=== PATIENT | female | born 1990 | race Caucasian/White ===

== ENCOUNTER 2017-01-01 18:03 | Emergency (ER) | payer SELFPAY ==
[~2017-01-01] VITALS: Ht 160 cm; Wt 81.3 kg
[~2017-01-01 18:03] MED LIST: ESCI20TA PO; HYDR-4246 PO
[2017-01-01 18:04] VITALS: Ht 160 cm; Wt 81.3 kg
--- OUTSIDE RECORDS SUMMARY | 2017-01-01 18:07 | XMS REPORT | Referral Summary ---
Author Author [facility] Organization [facility] Address Unknown Phone Unavailable Care Team Providers Care Mobile Home Installer Name Role Phone Dolly Brennan Primary Care Physician [phone] Encounter VC Date(s): 07/12/16 - 07/12/16 [facility] [address] [place] [address] JORJE Mahajan [id number] Discharge Diagnosis: RLQ abdominal pain Discharge Disposition: 01-Home or Self Care Attending Physician: Jose Olea MD Admitting Physician: Jose Olea MD Vital Signs Most recent to 1 oldest [Reference Range]: Temperature Tympanic 37.4 degC [36.6-38.1 degC] (07/12/16 3:13 PM) Peripheral Pulse 88 bpm Rate [60-100 bpm] (07/12/16 3:13 PM) Blood Pressure 128/72 mmHg [90-140/60-90 mmHg] (07/12/16 3:13 PM) SpO2 98 % (07/12/16 3:13 PM) Problem List Condition Effective Dates Status Health Status Informant Anemia(Confirmed) Active Anxiety(Confirmed) Active HTN Active (hypertension)(Confi rmed) Nephrolithiasis(Conf Active irmed) Obesity(Confirmed) Active patient Allergies, Adverse Reactions, Alerts Substance Reaction Severity Status sulfa drugs Active Medications ferrous sulfate 325 mg (65 mg elemental iron) oral tablet 325 mg 1 tabs, Oral, BID, 0 Refill(s) Start Date: 07/12/16 Status: Ordered Lexapro 20 mg oral tablet 20 mg 1 tabs, Oral, Daily, 0 Refill(s) Start Date: 07/12/16 Status: Ordered Ortho Tri-Cyclen oral tablet 1 tabs, Oral, Daily Start Date: 07/10/16 Status: Ordered Vitamin B12 50 mcg, Oral, Daily, TAKES 2 QD, 0 Refill(s) Start Date: 07/12/16 Status: Ordered Results No data available for this section Immunizations No data available for this section Procedures Procedure Date Related Diagnosis Body Site Caesarean section Tubal ligation Social History Social History Type Response Smoking Status Former smoker; Type: Cigarettes; Date Last Use: PT. QUIT . Assessment and Plan Extracted from: Title: Office Visit Note Author: Jose Olea MD Date: 07/12/16 Assessment/Plan 1.RLQ abdominal pain Ordered: Office Visit Level 4 New [address]3077 Plan: Soft tissue sonogram. Await results andproceed accordingly I did review the patient's chart including office note performed by her PCPs garryfrLeola 2015. I informed the patientthat I have had two patient's over last 17 yearsof my surgical careerpresent with asoft tissue endometriomaalong theirprior C-sectionincision. In both of these cases the endometrioma was hormonally responsiveand changed with the "menstrual cycle". Given her history and physical findings I informed the patient thata soft tissue endometrioma would be within the"list of possibilities"/differential diagnosis. To furtherdelineate whether or not there is indeed an obvious soft tissue mass I informed the patient that I would like to obtain asoft tissue sonogram. If a well delineated soft tissue mass isnoted upon sonography Iwould recommend toproceed with anexcisional biopsy. If no abnormalitiesare noted uponsonogramwilllikely than proceed with CT scan of pelvisfor further evaluation/rule out possible incisional hernia. The above proposed plan/algorithm was discussed with patient and . They understood and agreed.
--- OUTSIDE RECORDS SUMMARY | 2017-01-01 18:07 | XMS REPORT | Continuity of care Document ---
Author Author GENERATED, SYSTEM Organization Unknown Address Unknown Phone Unavailable Purpose Hospital Course Allergies, Adverse Reactions, Alerts * Sulfa (Sulfonamide Antibiotics) causes Hives. * No Latex Allergy. * No IV Contrast Allergy. Problems * Section Status:Active. * History of Section Status:Active. Procedures No relevant procedures performed. Medication It is the responsibility of the patient or patient architectural representative to confirm the list of medications with either the patient's personal care provider or the patient's follow-up care provider to ensure the patient has an appropriate list of medications to take at home. Take These Medications* IBUPROFEN (MOTRIN) 800 MG=1 TABLET By Mouth TIDP PRN PAIN Directions: oral three times a day PRN PAIN * oxyCODONE-acetaminophen 5 mg-325 mg Tablet, Ordered By: GLORIA MCDANIEL RN Directions: 1 or 2 tablets oral every four hours PRN PAIN Additional Instructions: . Stop Taking These Medications* None Results Blood Gas from 02/13/2014 7:[address] PH 7.350 (7.130-7.430 ) ART. CORD BL. PCO2 38.0 MM HG (30.0-60.0 MM HG) *ART. CORD BL. PO2 34 MM HG H (5-25 MM HG) ART. CORD BL. BE -4.2 L (-2.5-11.0 ) GURWINDER. CORD BL. PH 7.300 (7.190-7.490 ) GURWINDER. CORD BL. PCO2 50.0 MM HG (30.0-60.0 MM HG) GURWINDER. CORD BL. PO2 <30 MM HG (15-45 MM HG) GURWINDER. CORD BL. BE -2.4 (-2.5-9.0 ) Hematology from 02/13/2014 5:56 AMWBC 9.5 X10e3/UL (3.6-11.2 X10e3/UL) RBC 3.86 X10e6/UL (3.63-4.92 X10e6/UL) HEMOGLOBIN 11.2 G/DL (11.0-14.3 G/DL) HEMATOCRIT 32.9 % (31.2-41.9 %) MCV 85.2 FL (79.0-98.0 FL) MCH 29.0 PG (27.0-33.0 PG) MCHC 34.0 G/DL (32.0-36.0 G/DL) RDW 18.1 % H (12.3-17.0 %) RDWSD 53.8 H (37.1-47.8 ) PLATELET 191 X10e3/UL (159-386 X10e3/UL) MPV 9.5 FL (7.4-10.4 FL) AUTOMATED DIFF PERFORMED SEGS 72.6 % LYMPHOCYTES 14.9 % MONOCYTES 11.8 % EOSINOPHILS 0.3 % BASOPHILS 0.4 % ABSOLUTE NEUTROPHILS 6.9 X10e3/UL (1.8-7.8 X10e3/UL) ABSOLUTE LYMPHOCYTES 1.4 X10e3/UL (1.0-3.0 X10e3/UL) ABSOLUTE MONOCYTES 1.1 X10e3/UL H (0.3-1.0 X10e3/UL) ABSOLUTE EOSINOPHILS 0.0 X10e3/UL (0.0-0.5 X10e3/UL) ABSOLUTE BASOPHILS 0.0 X10e3/UL (0.0-0.2 X10e3/UL) Hematology from 02/14/2014 5:18 AMWBC 9.7 X10e3/UL (3.6-11.2 X10e3/UL) RBC 3.32 X10e6/UL L (3.63-4.92 X10e6/UL) HEMOGLOBIN 9.6 G/DL L (11.0-14.3 G/DL) HEMATOCRIT 28.5 % L (31.2-41.9 %) MCV 85.7 FL (79.0-98.0 FL) MCH 28.9 PG (27.0-33.0 PG) MCHC 33.7 G/DL (32.0-36.0 G/DL) RDW 17.8 % H (12.3-17.0 %) RDWSD 52.9 H (37.1-47.8 ) PLATELET 165 X10e3/UL (159-386 X10e3/UL) MPV 9.1 FL (7.4-10.4 FL) AUTOMATED DIFF PERFORMED SEGS 78.0 % LYMPHOCYTES 11.4 % MONOCYTES 9.5 % EOSINOPHILS 0.9 % BASOPHILS 0.2 % ABSOLUTE NEUTROPHILS 7.6 X10e3/UL (1.8-7.8 X10e3/UL) ABSOLUTE LYMPHOCYTES 1.1 X10e3/UL (1.0-3.0 X10e3/UL) ABSOLUTE MONOCYTES 0.9 X10e3/UL (0.3-1.0 X10e3/UL) ABSOLUTE EOSINOPHILS 0.1 X10e3/UL (0.0-0.5 X10e3/UL) ABSOLUTE BASOPHILS 0.0 X10e3/UL (0.0-0.2 X10e3/UL) Blood Bank from 02/13/2014 5:56 AMANTIBODY SCREEN (Indirect Young) NEG ABO GROUP O RH TYPE POS
--- OUTSIDE RECORDS SUMMARY | 2017-01-01 18:07 | XMS REPORT | Continuity of Care Document ---
Author Author [facility] Organization [facility] Address Unknown Phone Unavailable Support Name Relationship Address Phone PARI REED FACS, MD Caregiver [address] [place] [address] [place] [address] Unavailable NIDIA SANCHEZ Caregiver [address] [place] [address] Unavailable TONYRICARDO Next Of Kin [address] [place] [address] Insurance Providers Guarantor Naya,Sonidopaola Address [address] [place] [address] Email DENIED PT PORTAL Payer Self Pay Subscriber's Name TonySherrell alvarez Relationship 18 Self Advance Directives Directive Response Recorded Date/Time Ordered Resuscitation Status Full Code 09/07/16 1:38pm Resuscitation Documents on File No 09/08/16 8:31am DPOA for Healthcare Only No 09/08/16 8:31am Living Will No 09/08/16 8:31am Problems No problem information available. Medications Current Home Medications Medication Dose Units Route Directions Days Qty Instructions Start Date Escitalopram Oxalate (Lexapro) 20 Mg Tablet 1 Tab Oral Bedtime Hydrocodone/Acetaminophen ([place] 5-325 Tablet) 5-325 Tablet 1-2 Tab Oral Every 5 Hours for Pain 10 Tablet 09/08/16 Social History Social History Problem Response Recorded Date/Time Onset Date Status Reason for Hospitalization EXCISION ON ABDOMEN 09/08/2016 10:52am Not Applicable Not Applicable Chewing Tobacco Status No 09/08/2016 8:27am Not Applicable Not Applicable Hx Substance Use No 09/08/2016 8:27am Not Applicable Not Applicable Hx Alcohol Use No 09/08/2016 8:27am Not Applicable Not Applicable Has the pt used tobacco in the last 12 months No 09/08/2016 8:27am Not Applicable Not Applicable Query Response Start Date Stop Date Smoking Status Former smoker Hospital Discharge Instructions Instructions: Care Instructions: I was in the hospital because (patient own words): EXCISION ON ABDOMEN Discharge Diet: regular Discharge Activity: Do not drive, operate machinery for 24 hours after surgery or while taking pain medication. Follow Up Appointments: Follow up with Kimberley Knight APRN/Dr. Reed in 10-14 days. Pending Lab / Results: Will be notified Expected Signs/Symptoms: bruising of the iincision area Notify Physician If: 1. Call your surgeon if you are having problems relating to your surgery at [phone]. 2. Problems such as: Temp above 101.5 degrees You develop redness, excessive swelling of the incision, increasing pain or excessive foul smelling drainage. 3. If the office is closed, call [facility] at [phone] and have your Surgeon paged. During Business Hours:: Call your surgeon at at [phone]. After Business Hours:: If the office is closed, call [facility] at [phone] and have your Surgeon paged. Pain Management/Treatment: Follow prescriptions as prescribed Wound/Incision Care: Leave incision open to air. Do not rub or pick off the glue. May shower starting 09-09-2016 Condition at time of discharge: Good Plan of Care Discharge Date 09/08/16 11:33am Prescriptions See Medication Section Functional Status Query Response Date Recorded Ability to complete ADL's impeded by No change September 08, 2016 8:31am Allergies, Adverse Reactions, Alerts Allergen Type Severity Reaction Status Last Updated Sulfa (Sulfonamide Antibiotics) Allergy Unknown Active 05/23/09 Immunizations Query Response on File Recorded Date/Time Hx Influenza Vaccination No 09/08/16 8:27am Hx Pneumococcal Vaccination No 09/08/16 8:27am Hx Influenza Vaccination No 09/08/16 8:27am Vital Signs Acute Vital Signs Vital Response Date/Time Temperature (Fahrenheit) 98.1 deg F (96.8 - 99.1) 09/08/2016 10:37am Temperature (Calculated Celsius) 36.14026 degrees C (36.0 - 37.3) 09/08/2016 10:37am Temperature Source Temporal 09/08/2016 10:37am Pulse Rate (adult) 90 bpm (60 - 100) 09/08/2016 11:20am Respiratory Rate 20 breaths/min (10 - 20) 09/08/2016 11:20am O2 Sat by Pulse Oximetry 98 % (90 - 100) 09/08/2016 11:20am Oxygen Delivery Method Room Air 09/08/2016 11:20am Blood Pressure 121/69 mm Hg 09/08/2016 11:20am Blood Pressure Source Automatic Cuff 09/08/2016 11:20am Height (Feet) 5 feet 09/08/2016 8:14am Height (Inches) 4.00 inches 09/08/2016 8:14am Weight (Kilograms) 79.800 kg 09/08/2016 8:14am Body Mass Index (BMI) 30.2 09/08/2016 8:14am Results Laboratory Results Test Name Result Units Flags Reference Collection Date/Time Result Date/ Time Comments White Blood Count 7.0 T/MM3 4.5-11.0 09/08/2016 8:18am 09/08/2016 8: 30am Red Blood Count 4.29 M/MM3 4.00-5.20 09/08/2016 8:18am 09/08/2016 8: 30am Hemoglobin 11.9 GM/DL L 12-16 09/08/2016 8:18am 09/08/2016 8:30am Hematocrit 37.2 % 36-46 09/08/2016 8:18am 09/08/2016 8:30am Mean Corpuscular Volume 86.7 UM3 80-100 09/08/2016 8:18am 09/08/2016 8: 30am Mean Corpuscular Hemoglobin 27.7 UUG 26-34 09/08/2016 8:18am 2016 8:30am Mean Corpuscular Hemoglobin Concent 32.0 GM/DL 31-37 09/08/2016 8:18am 09/08/2016 8:30am RDW Standard Deviation 38.0 FL 36.9-50.2 09/08/2016 8:18am 09/08/2016 8 :30am Platelet Count 297 T/MM3 130-400 09/08/2016 8:18am 09/08/2016 8:30am Mean Platelet Volume 10.6 UM3 9.4-12.4 09/08/2016 8:18am 09/08/2016 8: 30am Neutrophils (%) (Auto) 60.0 % 33-66 09/08/2016 8:18am 09/08/2016 8: 30am Lymphocytes (%) (Auto) 29.0 % 23-45 09/08/2016 8:18am 09/08/2016 8: 30am Monocytes (%) (Auto) 8.6 % 0-9.0 09/08/2016 8:18am 09/08/2016 8:30am Eosinophils (%) (Auto) 1.4 % 0-4 09/08/2016 8:18am 09/08/2016 8:30am Basophils (%) (Auto) 0.7 % 0-2 09/08/2016 8:18am 09/08/2016 8:30am Immature Granulocyte % (Auto) 0.3 % 0.0-0.5 09/08/2016 8:18am 2016 8:30am Absolute Neutrophils (auto) 4.2 T/MM3 1.8-7.7 09/08/2016 8:18am 2016 8:30am Absolute Lymphocytes (auto) 2.0 T/MM3 1-4.8 09/08/2016 8:18am 2016 8:30am Absolute Monocytes (auto) 0.6 T/MM3 0-0.8 09/08/2016 8:18am 09/08/2016 8:30am Absolute Eosinophils (auto) 0.1 T/MM3 0-0.5 09/08/2016 8:18am 2016 8:30am Absolute Basophils (auto) 0.1 T/MM3 0-0.2 09/08/2016 8:18am 09/08/2016 8:30am Absolute Immature Granulocyte (auto 0.02 T/MM3 0.00-0.03 09/08/2016 8: 18am 09/08/2016 8:30am Procedures No known history of procedures. Encounters Encounter Location Arrival/Admit Date Discharge/Depart Date Attending Provider Departed Surgical Day Care [facility] 09/08/16 8:00am 09/08/16 11 :33am PARI REED FACS, MD
--- OUTSIDE RECORDS SUMMARY | 2017-01-01 18:08 | XMS REPORT | Referral Summary ---
Author Author [facility] Organization [facility] Address Unknown Phone Unavailable Care Team Providers Care Head Waiter/Waitress Name Role Phone Dolly Brennan Primary Care Physician [phone] Encounter VC Date(s): 09/12/16 - 09/12/16 [facility] [address] [place] [address] JORJE Mahajan [id number] Discharge Diagnosis: Dizzy Discharge Diagnosis: Nausea Discharge Diagnosis: Post-operative state Discharge Disposition: -Home or Self Care Attending Physician: Jose Olea MD Admitting Physician: Jose Olea MD Referring Physician: Clovis Brennan MD Vital Signs Most recent to 1 oldest [Reference Range]: Temperature Tympanic 37.3 degC [36.6-38.1 degC] (09/12/16 1:07 PM) Problem List Condition Effective Dates Status [...] Use: PT. QUIT . Assessment and Plan No data available for this section
--- NOTE | 2017-01-01 18:19 | ERPDOC ---
Departure Disposition Decision Date: January 01, 2017 Disposition Decision Time: 21:41 Disposition: 01 DISCHARGED HOME, SELF-CARE Impression Impression Impression: Primary Impression: Chest wall pain Severity: Moderate Condition: Improved Seen By: Physician and Mid-level Referrals: NIDIA SANCHEZ (Family) Patient Instructions: Chest Wall Pain (ED) Problems/Meds/Labs Reviewed?: Yes Medications reviewed and manag: Yes Additional Instructions: Your labs, EKG and CXR were normal today. Your pain is consistent with chest wall pain (see discharge packet). Take meloxicam 15mg once daily. This is a nonsteroidal antiinflammatory so do not take any additional ibuprofen (Motrin, Advil) or Aleve while taking. You may also take [place] 5/325mg, 1-2 tabs every 6 hours as needed for pain. This medication may cause drowsiness so avoid operating heavy machinery, driving or drinking alcohol while taking. This medication may cause constipation so you may need to take a stool softener while taking. I would suggest also taking OTC Pepcid twice daily, especially while taking meloxicam. Follow treatment plan. If your symptoms are not improving follow with your PCP for re-evaluation in the next 2-3 days. Follow up care ordered?: Yes Mental Status: Alert, Oriented Scripts Hydrocodone/Acetaminophen ([place] 5-325 Tablet) 5-325 Tablet 1-2 TAB PO Q6HPRN, #20 TAB Prov: RAJENDRA MONET UTILITY DRIVER 01/01/17 Meloxicam (Meloxicam) 15 Mg Tablet 15 MG PO DAILY, #10 TAB Prov: RAJENDRA MONET UTILITY DRIVER 01/01/17 HPI - Chest Pain General Stated Complaint: CHEST PAIN Time Seen by Provider: 18:13 Source: patient HPI - Chest Pain Initial Comments 26 YO F presents to ED with report of burning chest pain that started at 0800 today. Pain is worse when patient bends forward. Admits mild nausea. Pain is not associated with fever, chills, vomiting, SOA, diaphoresis, or chest wall strain. Patient states she has not ever had this pain before. Has taken ibuprofen and "heartburn medication" without relief. Occurred At: home Pain/Severity Scale: Now: 04/12 Location: anterior R, anterior L Quality: burning Associated Symptoms: denies symptoms, DENIES: abdominal pain, back pain, diaphoresis, dizziness, edema, fast HR, fatigue, fever/chills, headache, heartburn, irregular HR, nausea/vomiting, rash, shortness of breath, slow HR, swelling/lump in chest, syncope, weakness Aspirin Treatment Today: contraindicated Aspirin contraindicated becaus: Other (epigastric TTP and chest wall pain) Allergies: Coded Allergies: Sulfa (Sulfonamide Antibiotics) (Unverified Allergy, Unknown, 01/01/17) Past History Past Medical History Metabolic: DENIES: diabetes Cardiac: DENIES: angina Respiratory: DENIES: asthma GI: DENIES: ulcers Female: kidney stones Neurological: DENIES: seizures Musculoskeletal: DENIES: rheumatoid arthritis Hematologic: anemia Psychological: anxiety Surgical History Reproductive/: , tubal ligation Family History Family PMH: FOUND: CAD Vaccines Hx Influenza Vaccination: No Hx Pneumococcal Vaccination: No Social History Does patient use chewing tobac: No # of Packs/Tins per Day: 1 # of Years: 10 Second Hand Exposure: No Substance Use Type: does not use Sexuality: male partner Review of Systems Constitutional Constitutional: DENIES: chills, dizziness, fever, weakness Eyes General: DENIES: erythema, exudate Lids/Accessories: DENIES: erythema, swelling ENMT Ears: DENIES: pain Sinuses: DENIES: congestion, rhinorrhea Mouth/Throat: DENIES: sore throat Cardiovascular Cardiac: chest pain, see HPI, DENIES: murmur Rhythm/Rate: DENIES: palpitations Pulmonary Respiratory: DENIES: cough, dyspnea GI Upper Abdomen: nausea, DENIES: pain, vomiting Lower Abdomen: DENIES: diarrhea, pain General: DENIES: dysuria, pain Musculoskeletal General: DENIES: joint pain, pain, tenderness Integumentary Skin: DENIES: color change, itching, rash Neurological General: DENIES: ataxia, change in strength, numbness, paralysis/paresis, weakness Psychiatric Psychiatric: DENIES: anxiety, depression, nervousness Physical Exam General General Nourishment: well nourished, well developed, no acute distress, adult General Body Habitus: well groomed Vitals and Pain Weight: Kilograms: Height (feet): 5 Height (inches): 4.00 Triage Pain Scale: Eyes (brief) Eyes Brief: found: EOMI ENMT (brief) ENMT Brief: NOT FOUND: nasal exudate, nasal swelling Neck (brief) Neck: FOUND: trachea midline Respiratory (brief) Respiratory: FOUND: clear all raines, equal bilaterally, symmetrical, tenderness (TTP bilateral medial ICS 5-10 with IC TTP over right anterior chest ) Cardiovascular (brief) Cardiac: FOUND: regular rate, regular rhythm Abdomen Inspection: NOT FOUND: distention Palpation: FOUND: soft, tender (epigastric area and RUQ), NOT FOUND: hepatomegaly, involuntary guarding, rebound, splenomegaly, voluntary guarding Auscultation: FOUND: normoactive (x4) Musculoskeletal (brief) Musculoskeletal Brief: NOT FOUND: deformity, loss of motion Integumentary (brief) Integumentary Brief: FOUND: dry, pink, warm Neurologic (brief) Neurological Brief: FOUND: motor-no gross deficits, sensory-no gross deficits Psychiatric (brief) Psychiatric Brief: FOUND: alert, normal affect, oriented Differential Diagnoses Considering: Acute VA, Anxiety/Panic, Biliary Colic, Costochondritis, Esophageal Spasm, GERD, Pulmonary Edema, Muscle Spasm Progress Results/Orders Orders Lab Results Medications Current ED Medications Pharmacy Profile Note (/Maalox/ Lidocaine Soln) 30 ml O ONCE PO Last administered on 01/01/17 18:42; Start 01/01/17 at 18:30; Stop 01/01/17 at 18:31; Status DC Ketorolac Tromethamine (Toradol) 30 mg O ONCE IV Last administered on 19:32; Start 01/01/17 at 19:30; Stop 01/01/17 at 19:31; Status DC Hydromorphone HCl (Dilaudid) 0.5 mg O ONCE IV Last administered on 01/01/17 20 :27; Start 01/01/17 at 20:30; Stop 01/01/17 at 20:31; Status DC Hydromorphone HCl (Dilaudid) 0.5 mg O ONCE IV Last administered on 01/01/17 21 :53; Start 01/01/17 at 21:45; Stop 01/01/17 at 21:46; Status DC Progress Progress Labs unremarkable Patient initially said that GI cocktail helped the pain, however is now unsure. Patient is anxious. I discussed labs and CXR with patient and her and answered question. Pain is reproducible in chest wall and epigastric area. Patient rates pain 2/10 after toradol. Patient is discharged home improved. Patient verbalized understanding of treatment plan, follow up with PCP and return precautions. EKG EKG : Rate: 60-100 Rhythm: sinus [place]: normal QRS: normal Intervals: normal ST/T: normal Interpreted by: signing physician (Dr. Stein) Xray Xray : Xray: CXR PA/Lat Interpretation: Normal, Faxed Report RAJENDRA MONET UTILITY DRIVER January 01, 2017 18:19 Mean Corpuscular Volume 82.9UM3 Mean Corpuscular Hemoglobin 26.0UUG Mean Corpuscular Hemoglobin Concent 31.4GM/DL RDW Standard Deviation 39.8FL Platelet Count 278T/MM3 Mean Platelet Volume 10.4UM3 Immature Granulocyte % (Auto) 0.1% Neutrophils (%) (Auto) 65.4% Lymphocytes (%) (Auto) 23.5% Monocytes (%) (Auto) 8.3% Eosinophils (%) (Auto) 2.3% Basophils (%) (Auto) 0.4% Absolute Immature Granulocyte (auto 0.01T/MM3 Absolute Neutrophils (auto) 4.8T/MM3 Absolute Lymphocytes (auto) 1.7T/MM3 Absolute Monocytes (auto) 0.6T/MM3 Absolute Eosinophils (auto) 0.2T/MM3 Absolute Basophils (auto) 0.0T/MM3 D-Dimer 172NG/ML Turbidity < 20 Sodium Level 144MEQ/L Potassium Level 4.3MEQ/L Chloride Level 105MEQ/L Carbon Dioxide Level 24MEQ/L Anion Gap 15MEQ/L Blood Urea Nitrogen 5.0MG/DL Creatinine 0.7MG/DL Glomerular Filtration Rate Calc 100 BUN/Creatinine Ratio 7RATIO Glucose Level 91MG/DL Calculated Osmolality 274MOSM/KG Calcium Level 10.4MG/DL Total Bilirubin 0.40MG/DL Icterus Index < 2 Aspartate Amino Transf (AST/SGOT) 29U/L Alanine Aminotransferase (ALT/SGPT) 58U/L Alkaline Phosphatase 125U/L Troponin I < 0.012ng/ml Total Protein 7.6G/DL Albumin 4.4G/DL Globulin 3.2G/DL Albumin/Globulin Ratio 1.4RATIO Lipase 93U/L Chemistry Specimen Hemolysis < 15 Medications Current ED Medications Pharmacy Profile Note (/Maalox/ Lidocaine Soln) 30 ml O ONCE PO Last administered on 01/01/17 18:42; Start 01/01/17 at 18:30; Stop 01/01/17 at 18:31; Status DC Ketorolac Tromethamine (Toradol) 30 mg O ONCE IV Last administered on 19:32; Start 01/01/17 at 19:30; Stop 01/01/17 at 19:31; Status DC Hydromorphone HCl (Dilaudid) 0.5 mg O ONCE IV Last administered on 01/01/17 20 :27; Start 01/01/17 at 20:30; Stop 01/01/17 at 20:31; Status DC EKG EKG : Rate: 60-100 Rhythm: sinus [place]: normal QRS: normal Intervals: normal ST/T: normal Interpreted by: signing physician (Dr. Stein) RAJENDRA MONET APRN January 01, 2017 18:19
--- NOTE | 2017-01-01 18:20 | NUR ---
MADELINE MONET AT BEDSIDE TO EXAMINE Pt.
--- OUTSIDE RECORDS SUMMARY | 2017-01-01 18:28 | XMS REPORT | Continuity of care Document ---
Author Author GENERATED, SYSTEM Organization Unknown Address Unknown Phone Unavailable Purpose Hospital Course Allergies, Adverse Reactions, Alerts * Sulfa (Sulfonamide Antibiotics) causes Hives. * No Latex Allergy. * No IV Contrast Allergy. Problems * Section Status:Active. * History of Section Status:Active. Procedures No relevant procedures performed. Medication It is the responsibility of the patient or patient independent sales representative to confirm the list of medications [...]
[2017-01-01] MEDS ORDERED: G.I. COCKTAIL 30ml PO ONE (18:30)
[2017-01-01 18:50] LABS: BASOPHILS % (AUTO) 0.4 % (0-2); EOSINOPHILS # (AUTO) 0.2 T/MM3 (0-0.5); EOSINOPHILS % (AUTO) 2.3 % (0-4); HGB - HEMOGLOBIN 11.3 GM/DL (12-16); IMMATURE GRANULOCYTE # (AUTO) 0.01 T/MM3 (0.00-0.03); IMMATURE GRANULOCYTE % (AUTO) 0.1 % (0.0-0.5); LYMPHOCYTES # (AUTO) 1.7 T/MM3 (1-4.8); LYMPHOCYTES % (AUTO) 23.5 % (23-45); MEAN CORPUSCULAR HGB CONC(MCHC 31.4 GM/DL (31-37); MEAN CORPUSCULAR VOLUME 82.9 UM3 (80-100); MEAN PLATELET VOLUME 10.4 UM3 (9.4-12.4); MONOCYTES # (AUTO) 0.6 T/MM3 (0-0.8); MONOCYTES % (AUTO) 8.3 % (0-9.0); NEUTROPHILS #(AUTO)-ABSOLUTE 4.8 T/MM3 (1.8-7.7); NEUTROPHILS % (AUTO) 65.4 % (33-66); RED BLOOD COUNT 4.34 M/MM3 (4.00-5.20); WBC - WHITE BLOOD COUNT 7.3 T/MM3 (4.5-11.0)
[2017-01-01 18:56] LABS: ALBUMIN 4.4 G/DL (3.5-5.0); ALBUMIN/GLOBULIN RATIO 1.4 RATIO (1.1-2.2); ALKALINE PHOSPHATASE 125 U/L (38-126); ALT (SGPT) 58 U/L (9-52); ANION GAP 15 MEQ/L (5-15); AST (SGOT) 29 U/L (14-36); BUN/CREATININE RATIO 7 RATIO (6-26); CALCIUM 10.4 MG/DL (8.4-10.2); CHLORIDE 105 MEQ/L (98-107); CO2 - CARBON DIOXIDE 24 MEQ/L (22-30); CREATININE 0.7 MG/DL (0.7-1.2); GLOMERULAR FILTRATION RATE 100; GLUCOSE 91 MG/DL (65-110); LIPASE 93 U/L (23-300); POTASSIUM 4.3 MEQ/L (3.6-5); SODIUM 144 MEQ/L (134-144); TOTAL PROTEIN 7.6 G/DL (6.3-8.2)
[2017-01-01] MEDS ORDERED: KETOROLAC 30mg/ml INJECTION IV ONE (19:30)
[2017-01-01] MEDS ORDERED: HYDROMORPHONE 2mg/ml INJECTION IV ONE ×2 (20:30→21:45)
[2017-01-01] MEDS ORDERED: BUPR100T5 (20:32)
--- NOTE | 2017-01-01 20:48 | NUR ---
MADELINE MONET AT BEDSIDE.
--- NOTE | 2017-01-01 21:03 | NUR ---
RADIOLOGY TO RADIOLOGY VIA CART.
--- NOTE | 2017-01-01 21:06 | NUR ---
REPORT GIVEN TO KYLE NICHOLE.
--- NOTE | 2017-01-01 21:08 | NUR ---
RETURN PT RETURNS FROM RAD TO EX 6.
[2017-01-01] MEDS ORDERED: HYDR-4246 PO (21:48)
[2017-01-01] MEDS ORDERED: MELO-267 PO (21:48)
--- NOTE | 2017-01-01 21:53 | NUR ---
PAIN MED DILAUDID GIVEN IVP AT THIS TIME FOR 6/10 PAIN,.
--- NOTE | 2017-01-01 22:10 | NUR ---
STATUS PT REPORTS SHE IS FEELING BETTER AFTER PAIN MEDS. READY FOR DISCHARGE.
--- NOTE | 2017-01-01 22:12 | NUR ---
IVL SITE DC'D AT THIS TIME. CATH INTACT. DRSG APPLIED TO SITE.
[2017-01-01 22:15] VITALS: BP 128/78; PULSE 89; RESP 16; TEMP 98.8; O2SAT 97
--- NOTE | 2017-01-01 22:15 | NUR ---
DISMISSAL INSTRUCTIONS AND RX GIVEN/REVIEWED WITH PT AND SPOUSE. VERBALIZE UNDERSTANDING. PT LEAVES DEPT AMBULATORY UPON DISMISSAL. AYDE SIGNED OFF AT THIS TIME.
--- NOTE | 2017-01-02 08:10 | DI ---
INDICATION: ITS.REASON: medial chest pain and right sided chest pain PROCEDURE: CHEST 2-VIEWS UPRIGHT (PA \T\ LAT) Encounter: Initial COMPARISON: None FINDINGS: The lungs are clear without evidence of focal abnormal airspace opacity. There is no pleural effusion or pneumothorax. The heart size, mediastinal contours and pulmonary vascularity are within normal limits. There is no significant skeletal abnormality. IMPRESSION: No acute cardiopulmonary disease. There is a preliminary report by virtual radiologic. .
== END 2017-01-01 22:15 | disposition home or self-care (01) ==
LOC: ED 18:03
DX: R07.89 Other chest pain (principal); R11.0 Nausea; R10.13 Epigastric pain; F41.9 Anxiety disorder, unspecified
CPT/HCPCS: 80053; 83690; 84484; 85025; 85379; 93005